=== PATIENT | male | born 1955 | race African-American/Black ===

== ENCOUNTER 2017-06-09 12:19 | Emergency (ER) | payer SELFPAY ==
[2017-06-09] MEDS ORDERED: Ibuprofen 200 MG TAB ONE (15:33)
== END 2017-06-09 15:45 | disposition home or self-care (01) ==
LOC: ERS 12:19
DX: S06.0X0A Concussion without loss of consciousness, initial encounter (principal); S16.1XXA Strain of muscle, fascia and tendon at neck level, initial encounter; S39.012A Strain of muscle, fascia and tendon of lower back, initial encounter; E11.9 Type 2 diabetes mellitus without complications; F17.210 Nicotine dependence, cigarettes, uncomplicated; V43.62XA Car passenger injured in collision with other type car in traffic accident, initial encounter
CPT/HCPCS: 99283

== ENCOUNTER 2017-07-14 18:26 | Inpatient (IN) | payer OTHER ==
[2017-07-14 19:38] LABS: Hemoglobin 14.4 g/dL (14.0-18.0); Mean Corpuscular HGB CONC 33.2 g/dL (32.0-36.0); Mean Corpuscular Hemoglobin 34.2 pg (27.0-31.0); Mean Platelet Volume 10.1 fL (7.4-10.4); Platelet Count 47 thou/uL (130-400); RBC Distribution Width 11.7 % (11.5-14.5); Red Blood Cell (RBC) Count 4.21 mill/uL (4.70-6.10); White Blood Cell (WBC) Count 7.9 thou/uL (4.8-10.8)
[2017-07-14 19:46] LABS: ALT (SGPT) 47 U/L (8-55); AST (SGOT) 56 U/L (5-34); Albumin 2.6 g/dL (3.5-5.0); Alkaline Phosphatase 118 U/L (40-150); Anion Gap 12 mmol/L (10-20); BUN (Urea Nitrogen) 13 mg/dL (8.4-25.7); Bilirubin, Total 0.6 mg/dL (0.2-1.2); Calc. Creatinine Clearance 0 mL/min (70-130); Calcium 7.9 mg/dL (7.8-10.44); Carbon Dioxide 22 mmol/L (22-29); Chloride 98 mmol/L (98-107); Estimated GFR-MDRD 84; Globulin 4.1 g/dL (2.4-3.5); Glucose 145 mg/dL (70-105); Potassium 3.7 mmol/L (3.5-5.1); Protein, Total 6.7 g/dL (6.0-8.3); Sodium 128 mmol/L (136-145)
[2017-07-14 19:50] LABS: #Basophils 0.1 thou/uL (0.0-0.2); #Lymphocytes 1.8 thou/uL (1.20-3.40); #Monocytes 0.4 thou/uL (0.11-0.59); #Neutrophils 5.5 thou/uL (1.40-6.50); %Basophils 0.8 % (0.0-1.0); %Eosinophils 0.2 % (0.0-10.0); %Lymphocytes 23.3 % (21.0-51.0); %Monocytes 5.5 % (0.0-10.0); %Neutrophils 70.2 % (42.0-75.0); Band 29 % (5-11); Lymphocytes 16 % (21-51); MDiff Complete? YES; Macrocytosis SLIGHT = 6-15 cells (100X) (0-5/hpf); Metamyelocyte 1 % (0-0); Monocytes 2 % (0-10); Neutrophil 45 % (42-75); PLT Morphology Comment Appears Decreased; Reactive Lymphocytes 7 % (0-10); Vacuoles SLIGHT
--- NOTE | 2017-07-14 20:09 | RAD ---
CHEST ONE VIEW 07/14/17 HISTORY: Fever. COMPARISON: None. FINDINGS: There is air space opacity in lingula and left lower lobe. No pneumothorax. Right lung is relatively clear. The cardiac silhouette and mediastinal contours are within normal limits. IMPRESSION: Lingular and left lower lobe air space opacity suggesting pneumonia. Followup recommended. POS: [facility]
[2017-07-14 21:07] LABS: Bilirubin Negative (Negative); Blood, Urine Negative (Negative); Clarity CLEAR (Clear); Glucose, Urine (Dipstick) Negative (Negative); Leukocyte Negative (Negative); Nitrite Negative (Negative); Protein, Urine (Dipstick) Negative (Neg-Trace); Specific Gravity, Urine 1.011 (1.002-1.036)
[2017-07-14] MEDS ORDERED: Azithromycin 250 MG TAB ONE (21:16)
[2017-07-14] MEDS ORDERED: Ondansetron ODT 4 MG TAB SL PRN (23:49)
[2017-07-14] MEDS ORDERED: Acetaminophen 325 MG TAB PO PRN (23:49)
[2017-07-14] MEDS ORDERED: Ondansetron HCl/PF 4 MG/2 ML Vial IVP PRN (23:49)
[2017-07-15 00:21] VITALS: BMI 20.1
[2017-07-15] MEDS ORDERED: Ondansetron ODT 4 MG TAB PO PRN (00:42)
[2017-07-15] MEDS ORDERED: Sodium Chloride 0.9% 1,000 ML IV SCH (00:45)
[2017-07-15] MEDS ORDERED: cefTRIAXone\\ROCEPHIN 1 GM in Sodium Chloride 0.9% 100 ML IVPB SCH (01:00)
[2017-07-15 04:46] LABS: #Lymphocytes 2.7 thou/uL (1.20-3.40); #Monocytes 0.7 thou/uL (0.11-0.59); #Neutrophils 8.7 thou/uL (1.40-6.50); %Basophils 0.1 % (0.0-1.0); %Eosinophils 0.1 % (0.0-10.0); %Lymphocytes 22.6 % (21.0-51.0); %Monocytes 5.4 % (0.0-10.0); %Neutrophils 71.7 % (42.0-75.0); Hemoglobin 13.8 g/dL (14.0-18.0); Mean Corpuscular HGB CONC 34.9 g/dL (32.0-36.0); Mean Platelet Volume 10.6 fL (7.4-10.4); Platelet Count 43 thou/uL (130-400); RBC Distribution Width 11.7 % (11.5-14.5); Red Blood Cell (RBC) Count 3.84 mill/uL (4.70-6.10); White Blood Cell (WBC) Count 12.1 thou/uL (4.8-10.8)
[2017-07-15 04:47] LABS: ALT (SGPT) 34 U/L (8-55); AST (SGOT) 42 U/L (5-34); Albumin 2.5 g/dL (3.5-5.0); Alkaline Phosphatase 99 U/L (40-150); Anion Gap 7 mmol/L (10-20); BUN (Urea Nitrogen) 10 mg/dL (8.4-25.7); Bilirubin, Total 0.8 mg/dL (0.2-1.2); Calc. Creatinine Clearance 63 mL/min (70-130); Calcium 7.8 mg/dL (7.8-10.44); Carbon Dioxide 26 mmol/L (22-29); Chloride 107 mmol/L (98-107); Estimated GFR-MDRD 89; Globulin 3.2 g/dL (2.4-3.5); Glucose 101 mg/dL (70-105); Potassium 3.7 mmol/L (3.5-5.1); Protein, Total 5.7 g/dL (6.0-8.3); Sodium 136 mmol/L (136-145)
--- NOTE | 2017-07-15 06:54 | HP ---
CHIEF COMPLAINT: Flu-like symptoms. HISTORY OF PRESENT ILLNESS: He is a 61-year-old male with history of diabetes, cirrhosis. He presented to ED because he had flu-like symptoms for the last 1 week including cough, blood-tinged sputum, chills, fevers, rhinorrhea, and diarrhea for the last 3 days. He also has sick contact and the family has flu positive at home. He denies any hematemesis or melena. When he came to ER, his vital signs were pulse 112, blood pressure 95/65, respiratory rate 22, temperature 103.1. In the ER, he was diagnosed of sepsis and pneumonia and was given Rocephin, Zithromax, and vancomycin. PAST MEDICAL HISTORY: History of type 2 diabetes, cirrhosis. PAST SURGICAL HISTORY: History of cholecystectomy. PSYCHIATRIC HISTORY: Bipolar disorder. SOCIAL HISTORY: He denies alcohol use or drug use, but currently uses tobacco, 4 cigarettes a day. ALLERGIES: History of no drug allergy. MEDICATION TAKEN AT HOME: Metformin. FAMILY HISTORY: Noncontributory. REVIEW OF SYSTEMS: Constitutional: He does have chills, fatigue, and fever. Eyes: He denies any blurred vision. ENT: He complained of rhinorrhea. Cardiovascular: Denies any chest pain, palpitation. Respiratory: He complained of productive cough and wheezing. Gastrointestinal: He does have some diarrhea. Denies any hematemesis, melena. Musculoskeletal: No muscular pain. Skin: Negative. Neurologic: Negative. No headache. No dizziness. All review of systems was negative except in the history and physical. PHYSICAL EXAMINATION: GENERAL: When examined, this is a middle-aged man in the bed, not in distress. He was tachycardic, febrile. VITAL SIGNS: Blood pressure 130/69, pulse 86, respiratory rate 20, 100% saturation on room air. HEENT: Head is atraumatic, normocephalic. Pupils are round and reactive. Extraocular muscles intact. Ear and throat are normal. Tongue mucosa moist. NECK: Supple. No JVD. No thyromegaly. No carotid bruit. Trachea midline. No lymphadenopathy. CHEST: Diminished breath sounds. Few rhonchi. No wheezing. No crackles. CARDIOVASCULAR: S1, S2 audible. Tachycardia. No S3, S4. ABDOMEN: Soft. Bowel sounds audible. No organomegaly. No guarding. No rigidity. BACK: Normal range of motion. EXTREMITIES: No pedal edema. No cyanosis. No clubbing. NEUROLOGIC: Alert and oriented x3. No focal deficit. SKIN: Normal turgor. No rash. PSYCHIATRIC: Alert and oriented x3. Normal affect. IMAGING: EKG, tachycardia, normal left axis, possible left enlargement, no ST changes. Chest showed lingular left lower airspace disease, pneumonia. LABORATORY DATA: His lab shows WBC 7.9, hemoglobin 14.4, hematocrit 43.3, platelets 47, band 29. Sodium 128, potassium 3.7, chloride 98, carbon dioxide 22, anion gap 12, BUN 13, creatinine 1.08, glucose 145, Lactic acid 2.3 AST 56, ALT 43, albumin 2.6, globulin 4.1. ASSESSMENT AND PLAN: 1. Sepsis secondary to pneumonia. Plan: Sepsis protocol. IV fluid cautiously. IV Rocephin, Zithromax. 2. Hyponatremia secondary to the cirrhosis of liver. We will continue to monitor it. 3. Thrombocytopenia secondary to cirrhosis of liver. We will continue to monitor. 4. Hypoalbuminemia and abnormal liver function test with history of cirrhosis of liver. 5. Deep venous thrombosis prophylaxis, sequential compression devices. MTDD
[2017-07-15] MEDS: Famotidine 20 MG TAB PO SCH ×2 (07:49→20:15)
[2017-07-15] MEDS: Nicotine 14 MG PATCH TD SCH (07:50)
[2017-07-15] MEDS: Sodium Chloride 0.9% 1,000 ML IV SCH (07:50)
[2017-07-15 08:30] LABS: HBCM Index 0.08 S/CO (0-0.79); HBSAg Index 0.19 S/CO (0-0.99); Hep A IgM AB Non-Reactive (NonReactive); Hep A IgM S/CO 0.12 S/CO (0-0.79); Hep B Surf Ag Non-Reactive S/CO (NonReactive); Hep C IgG Ab Non-Reactive (NonReactive); Hep C Index 0.34 S/CO (0-0.79); Hepatitis B Core IGM Abs Non-Reactive (NonReactive)
--- NOTE | 2017-07-15 10:30 | PDOC.PN ---
- Subjective Encounter Start Date: 07/15/17 Encounter Start Time: 08:50 Subjective: breathing better -: drinks about 6pack 3 times/week, smokes 10-12 cig/day -: has hep B?, not sure, not on any treatment - Objective Resuscitation Status: Resuscitation Status FULL:Full Resuscitation MAR Reviewed: Yes Vital Signs & Weight: Vital Signs (12 hours) Temp Pulse Resp BP Pulse Ox 07/15/17 08:00 98.6 F 75 16 122/77 100 07/15/17 04:48 98.4 F 73 18 115/75 07/15/17 00:19 97.7 F 97 18 125/79 97 07/15/17 00:00 97.7 F 97 18 97 Weight Weight 128 lb 6.4 oz I&O: 07/14/17 07/15/17 07/16/17 06:59 06:59 06:59 Intake Total 240 Balance 240 Result Diagrams: 07/15/17 04:12 07/15/17 04:12 Additional Labs: Accuchecks 07/15/17 04:53 POC Glucose 94 Phys Exam - Physical Examination HEENT: PERRLA, moist MMs Neck: no JVD, supple Respiratory: no wheezing, no rales Cardiovascular: RRR, no significant murmur Gastrointestinal: soft, non-tender, positive bowel sounds Musculoskeletal: no edema, pulses present Neurological: non-focal, moves all 4 limbs Psychiatric: A&O x 3 Dx/Plan (1) Sepsis Code(s): A41.9 - SEPSIS, UNSPECIFIED ORGANISM Status: Acute Qualifiers: Sepsis type: sepsis due to unspecified organism Qualified Code(s): A41.9 - Sepsis, unspecified organism (2) PNA (pneumonia) Code(s): J18.9 - PNEUMONIA, UNSPECIFIED ORGANISM Status: Acute Qualifiers: Pneumonia type: due to unspecified organism (3) DM type 2 (diabetes mellitus, type 2) Status: Chronic Qualifiers: Diabetes mellitus complication status: with unspecified complications Diabetes mellitus long term care social worker insulin use: without alf use Qualified Code( s): E11.8 - Type 2 diabetes mellitus with unspecified complications (4) Cirrhosis Code(s): K74.60 - UNSPECIFIED CIRRHOSIS OF LIVER Status: Chronic Qualifiers: Hepatic cirrhosis type: alcoholic cirrhosis Ascites presence: without ascites Qualified Code(s): K70.30 - Alcoholic cirrhosis of liver without ascites - Plan is on ceftriaxone and azithromycin -: nebs, viral pcr panel -: check hep panel, afp levels -: alb is 2.5, platelets 43 all sec to liver disease -: counselled reg alc and tob abuse * . Review of Systems - Medications/Allergies Allergies/Adverse Reactions: Allergies Allergy/AdvReac Type Severity Reaction Status Date / Time No Known Allergies Allergy Verified 07/14/17 23:56 Medications: Current Medications Hydrocodone Bitart/Acetaminophen ([place] 5/325) 1 tab PO Q4H PRN PRN Reason: Moderate Pain (4-6) Albuterol/Ipratropium (Duoneb) 3 ml NEB [id number] STEPHANIE Famotidine (Pepcid) 20 mg PO BID STEPHANIE Last Admin: 07/15/17 07:49 Dose: 20 mg Azithromycin 500 mg/ Sodium (Chloride) 250 mls @ 250 mls/hr IVPB 2200 STEPHANIE Ceftriaxone Sodium 1 gm/ (Syringe 0.4 ml/ Sterile Water) 10 mls @ 120 mls/hr SLOW IVP 2100 STEPHANIE Sodium Chloride (Normal Saline 0.9%) 1,000 mls @ 50 mls/hr IV .Q20H [facility] Last Admin: 07/15/17 07:50 Dose: 1,000 mls Influenza Virus Vaccine (Fluzone Quad [id number] Syringe) 0.5 ml IM .ONCE ONE Stop: 07/16/17 09:01 Nicotine (Nicoderm Patch) 14 mg TD Q24HR [facility] Last Admin: 07/15/17 07:50 Dose: 14 mg Ondansetron HCl (Zofran Odt) 4 mg PO Q6H PRN PRN Reason: Nausea/Vomiting Pneumococcal Polyvalent Vaccine (Pneumovax 23) 0.5 ml IM .ONCE ONE Stop: 07/16/17 09:01 Sodium Chloride (Flush - Normal Saline) 10 ml IVF Q12HR STEPHANIE Last Admin: 07/15/17 07:50 Dose: Not Given Sodium Chloride (Flush - Normal Saline) 10 ml IVF PRN PRN PRN Reason: Saline Flush
[2017-07-15] MEDS: cefTRIAXone\\ROCEPHIN 1 GM, Syringe 0.4 ML in Sterile Water 9.6 ML SLOW IVP SCH (20:14)
[2017-07-15] MEDS: HYDROcodone/Acetaminophen 5/325 mg Tablet PO PRN (20:15)
[2017-07-15] MEDS: Azithromycin 500 MG in Sodium Chloride 0.9% 250 ML 250 ML IVPB SCH (21:54)
[2017-07-15] MEDS ORDERED: traMADol HCl 50 MG TAB PO PRN (23:21)
[2017-07-16] MEDS: Sodium Chloride 0.9% 1,000 ML IV SCH (05:39)
[2017-07-16] MEDS ORDERED: FLU VACC QS2017-18 36 mo. & older 0.5 ML SYRINGE IM ONE (09:00)
[2017-07-16] MEDS: Famotidine 20 MG TAB PO SCH ×2 (09:32→20:29)
[2017-07-16] MEDS: Nicotine 14 MG PATCH TD SCH (09:32)
--- NOTE | 2017-07-16 11:37 | PDOC.PN ---
- Subjective Encounter Start Date: 07/16/17 Encounter Start Time: 10:40 Subjective: cough and sob is better -: no abd pain - Objective Resuscitation Status: Resuscitation Status FULL:Full Resuscitation MAR Reviewed: Yes Vital Signs & Weight: Vital Signs (12 hours) Temp Pulse Resp BP Pulse Ox 07/16/17 11:32 86 14 97 07/16/17 11:00 98.7 F 86 16 147/81 H 99 07/16/17 08:00 98.1 F 89 20 160/92 H 97 07/16/17 07:19 98.1 F 88 20 160/92 H 97 07/16/17 06:37 90 12 97 07/16/17 00:14 93 12 97 Weight Weight 128 lb 6.4 oz I&O: 07/15/17 07/16/17 07/17/17 06:59 06:59 06:59 Intake Total 920 Balance 920 Result Diagrams: 07/15/17 04:12 07/15/17 04:12 Additional Labs: Accuchecks 07/16/17 07/15/17 07/15/17 04:57 19:42 17:04 POC Glucose 85 135 H 157 H 07/15/17 11:35 POC Glucose 104 Phys Exam - Physical Examination HEENT: PERRLA, moist MMs Neck: no nodes, no JVD Respiratory: no wheezing, no rales rhonchi+ Cardiovascular: RRR, no significant murmur Gastrointestinal: soft, non-tender, no distention, positive bowel sounds Musculoskeletal: no edema, pulses present Neurological: non-focal, moves all 4 limbs Psychiatric: A&O x 3 Dx/Plan (1) Sepsis Code(s): A41.9 - SEPSIS, UNSPECIFIED ORGANISM Status: Resolved Qualifiers: Sepsis type: sepsis due to unspecified organism Qualified Code(s): A41.9 - Sepsis, unspecified organism (2) PNA (pneumonia) Code(s): J18.9 - PNEUMONIA, UNSPECIFIED ORGANISM Status: Acute Qualifiers: Pneumonia type: due to unspecified organism (3) DM type 2 (diabetes mellitus, type 2) Status: Chronic Qualifiers: Diabetes mellitus complication status: with unspecified complications Diabetes mellitus lobsterman insulin use: without shelter use Qualified Code( s): E11.8 - Type 2 diabetes mellitus with unspecified complications (4) Cirrhosis Code(s): K74.60 - UNSPECIFIED CIRRHOSIS OF LIVER Status: Chronic Qualifiers: Hepatic cirrhosis type: alcoholic cirrhosis Ascites presence: without ascites Qualified Code(s): K70.30 - Alcoholic cirrhosis of liver without ascites - Plan hepatitis panel is -ve, afp is elevated -: will get MRI liver protocol to check for mass -: is on ceftriaxone and zithromax, nebs -: dc plan in am if stable -: to ambulate in hallway as tolerated * . Review of Systems - Medications/Allergies Allergies/Adverse Reactions: Allergies Allergy/AdvReac Type Severity Reaction Status Date / Time No Known Allergies Allergy Verified 07/14/17 23:56 Medications: Current Medications Hydrocodone Bitart/Acetaminophen ([place] 5/325) 1 tab PO Q4H PRN PRN Reason: Moderate Pain (4-6) Last Admin: 07/15/17 20:15 Dose: 1 tab Albuterol/Ipratropium (Duoneb) 3 ml NEB [id number] [facility] Last Admin: 07/16/17 11:32 Dose: 3 ml Famotidine (Pepcid) 20 mg PO BID [facility] Last Admin: 07/16/17 09:32 Dose: 20 mg Azithromycin 500 mg/ Sodium (Chloride) 250 mls @ 250 mls/hr IVPB 2200 [facility] Last Admin: 07/15/17 21:54 Dose: 250 mls Ceftriaxone Sodium 1 gm/ (Syringe 0.4 ml/ Sterile Water) 10 mls @ 120 mls/hr SLOW IVP 2100 [facility] Last Admin: 07/15/17 20:14 Dose: 10 mls Sodium Chloride (Normal Saline 0.9%) 1,000 mls @ 50 mls/hr IV .Q20H [facility] Last Admin: 07/16/17 05:39 Dose: Not Given Nicotine (Nicoderm Patch) 14 mg TD Q24HR [facility] Last Admin: 07/16/17 09:32 Dose: 14 mg Ondansetron HCl (Zofran Odt) 4 mg PO Q6H PRN PRN Reason: Nausea/Vomiting Sodium Chloride (Flush - Normal Saline) 10 ml IVF Q12HR [facility] Last Admin: 07/16/17 10:16 Dose: Not Given Sodium Chloride (Flush - Normal Saline) 10 ml IVF PRN PRN PRN Reason: Saline Flush Tramadol HCl (Ultram) 50 mg PO Q6H PRN PRN Reason: Pain Last Admin: 07/16/17 05:37 Dose: 50 mg
--- NOTE | 2017-07-16 14:37 | MRI ---
MRI OF THE ABDOMEN WITHOUT AND WITH CONTRAST: Date: 07/16/17 COMPARISON: None. HISTORY: Elevated alphafetoprotein. Alcoholic cirrhosis. TECHNIQUE: Multiplanar, multisequence MR images were obtained of the abdomen without and with contrast. FINDINGS: The liver appears to have a smooth contour without obvious cirrhosis. The gallbladder has been remove d. No biliary dilatation is seen. No suspicious liver mass or abnormal enhancement in the liver is pr esent. There are tiny nonenhancing lesions in the left kidney demonstrating a high T2 signal and measuring u p to 6.0 mm in size which represent cysts. The right kidney, adrenal glands, spleen, and pancreas are unremarkable. No abdominal adenopathy is seen. No marrow signal abnormality is present. IMPRESSION: 1. No suspicious liver abnormality. 2. Left renal cysts. POS: [facility]
[2017-07-16] MEDS: HYDROcodone/Acetaminophen 5/325 mg Tablet PO PRN (15:41)
[2017-07-16] MEDS ORDERED: Gadobenate Dimeglumine 529 MG/1 ML (20ML VIAL) ONE (15:52)
[2017-07-16] MEDS ORDERED: Acetaminophen 325 MG TAB PO PRN (17:28)
[2017-07-16] MEDS: Acetaminophen 325 MG TAB PO PRN (18:03)
[2017-07-16] MEDS: cefTRIAXone\\ROCEPHIN 1 GM, Syringe 0.4 ML in Sterile Water 9.6 ML SLOW IVP SCH (20:29)
[2017-07-16] MEDS: Azithromycin 500 MG in Sodium Chloride 0.9% 250 ML 250 ML IVPB SCH (20:29)
[2017-07-17 05:11] LABS: #Basophils 0.1 thou/uL (0.0-0.2); #Eosinphils 0.2 thou/uL (0.0-0.7); #Lymphocytes 2.8 thou/uL (1.20-3.40); #Monocytes 0.7 thou/uL (0.11-0.59); #Neutrophils 6.2 thou/uL (1.40-6.50); %Basophils 0.8 % (0.0-1.0); %Eosinophils 1.9 % (0.0-10.0); %Monocytes 6.7 % (0.0-10.0); %Neutrophils 62.7 % (42.0-75.0); Hemoglobin 14.1 g/dL (14.0-18.0); Mean Corpuscular HGB CONC 34.4 g/dL (32.0-36.0); Mean Corpuscular Hemoglobin 35.6 pg (27.0-31.0); Mean Platelet Volume 10.6 fL (7.4-10.4); Platelet Count 47 thou/uL (130-400); RBC Distribution Width 11.6 % (11.5-14.5); Red Blood Cell (RBC) Count 3.97 mill/uL (4.70-6.10)
[2017-07-17 05:27] LABS: Anion Gap 12 mmol/L (10-20); BUN (Urea Nitrogen) 6 mg/dL (8.4-25.7); Calc. Creatinine Clearance 77 mL/min (70-130); Calcium 8.5 mg/dL (7.8-10.44); Carbon Dioxide 29 mmol/L (22-29); Chloride 101 mmol/L (98-107); Estimated GFR-MDRD Greater than 90; Glucose 101 mg/dL (70-105); Potassium 3.7 mmol/L (3.5-5.1); Sodium 138 mmol/L (136-145)
[2017-07-17] MEDS: Famotidine 20 MG TAB PO SCH ×2 (07:55→19:38)
[2017-07-17] MEDS: Acetaminophen 325 MG TAB PO PRN ×2 (07:55→17:25)
[2017-07-17] MEDS: HYDROcodone/Acetaminophen 5/325 mg Tablet PO PRN ×2 (07:57→17:24)
[2017-07-17] MEDS: Nicotine 14 MG PATCH TD SCH (08:01)
--- NOTE | 2017-07-17 08:34 | RAD ---
CHEST ONE VIEW: History: Dyspnea. Follow up. Comparison: 07-14-17 FINDINGS: Cardiac silhouette is magnified by projection. Lungs remain hyperinflated. Patchy infiltrates through out each lung, primarily involving the lower lobes, have progressed since the previous exam. There is no evidence of pneumothorax. IMPRESSION: Interval worsening of bilateral infiltrates. Clinical correlation regarding other signs and symptoms of bilateral pneumonitis is required. Close continued radiographic follow up is suggested. POS: [facility]
--- NOTE | 2017-07-17 12:50 | PDOC.PN ---
- Subjective Encounter Start Date: 07/17/17 Encounter Start Time: 10:25 Subjective: is breathing better -: no sob, is amb in room - Objective Resuscitation Status: Resuscitation Status FULL:Full Resuscitation MAR Reviewed: Yes Vital Signs & Weight: Vital Signs (12 hours) Temp Pulse Resp BP Pulse Ox 07/17/17 11:47 85 16 94 L 07/17/17 08:00 98.8 F 81 18 152/66 H 100 Weight Admit Weight 128 lb 6.4 oz Weight 128 lb 6.4 oz I&O: 07/16/17 07/17/17 07/18/17 06:59 06:59 06:59 Intake Total 920 540 Output Total 1800 Balance 920 -1260 Result Diagrams: 07/17/17 04:14 07/17/17 04:14 Additional Labs: Accuchecks 07/17/17 07/17/17 07/16/17 11:59 04:06 19:56 POC Glucose 111 H 96 159 H 07/16/17 07/16/17 19:00 15:51 POC Glucose 141 H 135 H Phys Exam - Physical Examination HEENT: PERRLA, moist MMs Neck: no JVD, supple Respiratory: no wheezing, no rales rhonchi+ Cardiovascular: RRR, no significant murmur Gastrointestinal: soft, non-tender, positive bowel sounds Musculoskeletal: no edema, pulses present Neurological: non-focal, moves all 4 limbs Psychiatric: normal affect, A&O x 3 Dx/Plan (1) Sepsis Code(s): A41.9 - SEPSIS, UNSPECIFIED ORGANISM Status: Resolved Qualifiers: Sepsis type: sepsis due to unspecified organism Qualified Code(s): A41.9 - Sepsis, unspecified organism (2) PNA (pneumonia) Code(s): J18.9 - PNEUMONIA, UNSPECIFIED ORGANISM Status: Acute Qualifiers: Pneumonia type: due to unspecified organism (3) DM type 2 (diabetes mellitus, type 2) Status: Chronic Qualifiers: Diabetes mellitus complication status: with unspecified complications Diabetes mellitus group home insulin use: without group home use Qualified Code( s): E11.8 - Type 2 diabetes mellitus with unspecified complications (4) Alcohol abuse Code(s): F10.10 - ALCOHOL ABUSE, UNCOMPLICATED Status: Chronic (5) Tobacco abuse Code(s): Z72.0 - TOBACCO USE Status: Chronic - Plan on ceftriaxone and zithromax -: switch to omnicef -: clinically is getting better, xray likely lagging behind -: dc plan in am, thrombocytopenia with high mcv likely due to alc abuse -: will need script for nicotine patch (has helped him) * . Review of Systems - Medications/Allergies Allergies/Adverse Reactions: Allergies Allergy/AdvReac Type Severity Reaction Status Date / Time No Known Allergies Allergy Verified 07/14/17 23:56 Medications: Current Medications Acetaminophen (Tylenol) 650 mg PO Q6H PRN PRN Reason: Headache/Fever or Pain Last Admin: 07/17/17 07:55 Dose: 650 mg Hydrocodone Bitart/Acetaminophen ([place] 5/325) 1 tab PO Q4H PRN PRN Reason: Moderate Pain (4-6) Last Admin: 07/17/17 07:57 Dose: 1 tab Albuterol/Ipratropium (Duoneb) 3 ml NEB [id number] STEPHANIE Last Admin: 07/17/17 11:47 Dose: 3 ml Famotidine (Pepcid) 20 mg PO BID STEPHANIE Last Admin: 07/17/17 07:55 Dose: 20 mg Azithromycin 500 mg/ Sodium (Chloride) 250 mls @ 250 mls/hr IVPB 2200 STEPHANIE Last Admin: 07/16/17 20:29 Dose: 250 mls Ceftriaxone Sodium 1 gm/ (Syringe 0.4 ml/ Sterile Water) 10 mls @ 120 mls/hr SLOW IVP 2100 STEPHANIE Last Admin: 07/16/17 20:29 Dose: 10 mls Nicotine (Nicoderm Patch) 14 mg TD Q24HR STEPHANIE Last Admin: 07/17/17 08:01 Dose: 14 mg Ondansetron HCl (Zofran Odt) 4 mg PO Q6H PRN PRN Reason: Nausea/Vomiting Sodium Chloride (Flush - Normal Saline) 10 ml IVF Q12HR STEPHANIE Last Admin: 07/17/17 08:01 Dose: 10 ml Sodium Chloride (Flush - Normal Saline) 10 ml IVF PRN PRN PRN Reason: Saline Flush Tramadol HCl (Ultram) 50 mg PO Q6H PRN PRN Reason: Pain Last Admin: 07/16/17 05:37 Dose: 50 mg
[2017-07-17] MEDS: Azithromycin 500 MG in Sodium Chloride 0.9% 250 ML 250 ML IVPB SCH (19:37)
[2017-07-17] MEDS: cefTRIAXone\\ROCEPHIN 1 GM, Syringe 0.4 ML in Sterile Water 9.6 ML SLOW IVP SCH (19:38)
[2017-07-17] MEDS ORDERED: Benzonatate 100 MG CAP PO PRN (19:49)
[2017-07-17] MEDS: Guaifenesin DM 100-10/5 ML UDCUP PO PRN (20:32)
[2017-07-18] MEDS: Guaifenesin DM 100-10/5 ML UDCUP PO PRN ×2 (04:51→08:42)
[2017-07-18 08:32] VITALS: BP 142/88; TEMP 99.4
[2017-07-18] MEDS: Famotidine 20 MG TAB PO SCH (08:42)
[2017-07-18] MEDS: Nicotine 14 MG PATCH TD SCH (08:42)
[2017-07-18] MEDS: Acetaminophen 325 MG TAB PO PRN (08:51)
[2017-07-18] MEDS: HYDROcodone/Acetaminophen 5/325 mg Tablet PO PRN (11:36)
--- NOTE | 2017-07-18 17:48 | DIS ---
DATE OF ADMISSION: 07/14/2017 DATE OF DISCHARGE: 07/18/2017 DISCHARGE DIAGNOSES: 1. Sepsis syndrome secondarily to pneumonia, resolved. 2. Bilateral pneumonia with suspected gram positive cocci, stable. 3. Alcohol abuse. 4. Tobacco abuse. 5. Diabetes mellitus type 2. CONSULTATIONS: None. PERTINENT LABORATORY AND X-RAY FINDINGS: Sodium ranged between 128-138. Lactic acid level ranged be tween 1.0-2.3, AST ranged between 42-56, ALT ranged between 34-47, albumin ranged between 2.5-2.6, li pase 37. AFP 19.8. CBC showed a white blood cell count ranging between 7.9-12.0, hemoglobin ranged between 13.8-14.4. Hepatitis A, B, and C panel negative, 07/14/2017. Blood culture x1 dated 018 showed no growth at 48 hours. Influenza A and B antigen dated 07/14/2017 negative. Respiratory virus panel dated 07/15/2017 negative. Portable chest x-ray dated 07/14/2017 showed lingular and lef t lower lobe infiltrate suggestive of pneumonia. Portable chest x-ray dated 07/17/2017 showed bilate ral infiltrates. HOSPITAL COURSE: Patient was admitted to the medical floor after initially presenting with flu-like symptoms with productive cough, fever, and chills. The patient underwent extensive evaluation includ ing multiple metabolic evaluations with influenza ruled out as stated previously. The patient was no ednver with infiltrates on chest imaging and initiated on IV antibiotic therapy after concern for sepsis syndrome secondary to pneumonia. The patient received IV Rocephin and Zithromax as well as intraven ous fluids. The patient clinically improved in the first 48 hours; however, had residual productive cough. The patient was given mucolytics and antitussive agents with mild improvement. Patient also received bronchodilator therapy and general pulmonary support. The patient clinically stabilized by the day of discharge, tolerating regular oral intake, ambulating without assistance or difficulty and clinically stable. The patient will transition to Omnicef 300 mg b.i.d. to complete outpatient anti biotic course. Overall, the patient clinically stabilized and ready for discharge on 07/18/2017. DISCHARGE MEDICATIONS: 1. Omnicef 300 mg 1 tab p.o. b.i.d. x7 days. 2. Tessalon Perles 100 mg p.o. q.4 hours p.r.n. cough. 3. Robitussin-DM 15 mL p.o. q.4 h. p.r.n. 4. Naproxen 500 mg 1 tab p.o. daily. 5. Nicotine patch 14 mg transdermally q.24 h. 6. Onglyza 5 mg p.o. daily. 7. Trazodone 50 mg p.o. daily. FOLLOWUP: Patient will follow up with his primary care provider, Dr. Jeff Rosas, within 7 days of discharge. CONDITION ON DISCHARGE: Fair. ACTIVITY: ad chavez. DIET: ADA. CODE STATUS: FULL. SPECIAL INSTRUCTIONS: Recommend repeat AFP tumor marker within 2 weeks of discharge. DISPOSITION: Home, 07/18/2017.
--- NOTE | 2017-07-19 00:48 | EKG ---
Test Reason : Blood Pressure : / mmHG Vent. Rate : 094 BPM Atrial Rate : 084 BPM P-R Int : 134 ms QRS Dur : 082 ms QT Int : 362 ms P-R-T Axes : 079 083 063 degrees QTc Int : 452 ms Sinus rhythm with Premature supraventricular complexes with occasional Premature ventricular complexe s Otherwise normal ECG When compared with ECG of 14-JUL-2017 19:10, (Unconfirmed) Premature ventricular complexes are now Present Premature supraventricular complexes are now Present Confirmed by YVON MOSQUEDA, DR. Rodney ([id number]) on 07/19/2017 12:47:55 AM Referred By: JOHANNA Confirmed By:DR. Ronel SANZ MD
== END 2017-07-18 12:04 | disposition home or self-care (01) | DRG 871 ==
LOC: ERS 18:26 → T4-B 22:30
PROVIDERS: ADMIT Family Medicine; ATTEND Family Medicine
DX: A41.9 Sepsis, unspecified organism (principal); J18.9 Pneumonia, unspecified organism; D69.6 Thrombocytopenia, unspecified; E87.1 Hypo-osmolality and hyponatremia; E88.09 Other disorders of plasma-protein metabolism, not elsewhere classified; E11.9 Type 2 diabetes mellitus without complications; Z79.84 Long term (current) use of oral hypoglycemic drugs; F31.9 Bipolar disorder, unspecified; F17.210 Nicotine dependence, cigarettes, uncomplicated; F10.10 Alcohol abuse, uncomplicated; K70.30 Alcoholic cirrhosis of liver without ascites
CPT/HCPCS: 36415; 36416; 71045; 74183; 80048; 80053; 80074; 81003; 82105; 83605; 83690; 85025; 87040; 87633; 93005; 93010; 94640; 94760; 96361; 96365; 96375; A4216; A9579; J0456; J0696; J3370; J7050; J7620

== ENCOUNTER 2018-04-19 13:37 | Observation (INO) | payer OTHER ==
[2018-04-19] MEDS ORDERED: Piperacillin/Tazobactam 4.5 GM VIAL ONE (13:58)
[2018-04-19 14:23] LABS: #Basophils 0.1 thou/uL (0.0-0.2); #Eosinphils 0.3 thou/uL (0.0-0.7); #Lymphocytes 2.6 thou/uL (1.20-3.40); #Monocytes 0.4 thou/uL (0.11-0.59); #Neutrophils 2.7 thou/uL (1.40-6.50); %Basophils 1.3 % (0.0-1.0); %Eosinophils 4.4 % (0.0-10.0); %Lymphocytes 43.2 % (21.0-51.0); %Monocytes 6.4 % (0.0-10.0); %Neutrophils 44.8 % (42.0-75.0); Hemoglobin 13.4 g/dL (14.0-18.0); Mean Corpuscular Hemoglobin 34.4 pg (27.0-31.0); Mean Platelet Volume 11.1 fL (7.4-10.4); Platelet Count 65 thou/uL (130-400); RBC Distribution Width 11.6 % (11.5-14.5); Red Blood Cell (RBC) Count 3.89 mill/uL (4.70-6.10); White Blood Cell (WBC) Count 6.1 thou/uL (4.8-10.8)
[2018-04-19 14:31] LABS: PLT Morphology Comment Appears Decreased; RBC Morphology Normal
[2018-04-19 14:35] LABS: ALT (SGPT) 93 U/L (8-55); AST (SGOT) 80 U/L (5-34); Albumin 3.2 g/dL (3.4-4.8); Alkaline Phosphatase 141 U/L (40-150); Anion Gap 10 mmol/L (10-20); BUN (Urea Nitrogen) 10 mg/dL (8.4-25.7); Bilirubin, Total 1.1 mg/dL (0.2-1.2); CK (CPK) 358 U/L (30-200); Calc. Creatinine Clearance 0 mL/min (70-130); Calcium 8.6 mg/dL (7.8-10.44); Carbon Dioxide 27 mmol/L (23-31); Chloride 103 mmol/L (98-107); Estimated GFR-MDRD 58; Globulin 3.6 g/dL (2.4-3.5); Glucose 101 mg/dL (80-115); Protein, Total 6.8 g/dL (5.8-8.1); Sodium 136 mmol/L (136-145)
--- NOTE | 2018-04-19 14:36 | RAD ---
CHEST 1 VIEW: Date: 04/19/18 HISTORY: Patient feeling unsteady. Weakness and lethargy. COMPARISON: None. FINDINGS: Normal cardiac silhouette. Pulmonary vessels and hilum are normal. No mass. No consolidation. No pneu mothorax or osseous abnormalities. IMPRESSION: No acute cardiopulmonary process. POS: [facility]
[2018-04-19 14:40] LABS: CKMB 1.9 ng/mL (0-6.6); Troponin I 0.026 ng/mL (< 0.028)
[2018-04-19 14:52] LABS: Bilirubin Negative (Negative); Blood, Urine Small (Negative); Clarity CLEAR (Clear); Glucose, Urine (Dipstick) Negative (Negative); Leukocyte Negative (Negative); Nitrite Negative (Negative); Protein, Urine (Dipstick) Negative (Neg-Trace); Specific Gravity, Urine 1.009 (1.002-1.036); pH, Urine 6.5 (5.0-9.0)
[2018-04-19 14:54] LABS: Bacteria/HPF None Seen HPF (None Seen); Pathc Cast-AUWi Flag 1.59 (0-2.49); RBC/HPF 0-3 HPF (0-3); Squamous Epithelial 0-3 HPF (0-3); WBC/HPF 0-3 HPF (0-3)
[2018-04-19 18:08] VITALS: BMI 21.7
[2018-04-19] MEDS ORDERED: Heparin 5,000 UNITS/ML VIAL SC SCH (21:00)
[2018-04-19] MEDS ORDERED: Nicotine 14 MG PATCH TOP SCH (21:30)
[2018-04-19 21:31] LABS: Medtox Reader # READER 4
[2018-04-19 21:32] LABS: Amphetamine Not Detected (NotDetected); Barbiturates Screen Not Detected (NotDetected); Benzodiazepine Screen Not Detected (NotDetected); Cocaine Metabolite Screen Not Detected (NotDetected); Medtox Control Line Valid? VALID (VALID); Methadone Not Detected (NotDetected); Methamphetamine Not Detected (NotDetected); Opiate Screen Not Detected (NotDetected); Oxycodone Screen Not Detected (NotDetected); Phencyclidine (PCP) Not Detected (NotDetected); THC/Cannabinoid Screen Detected (NotDetected); Tricyclic Screen Not Detected (NotDetected)
[2018-04-20 05:49] LABS: #Basophils 0.1 thou/uL (0.0-0.2); #Eosinphils 0.4 thou/uL (0.0-0.7); #Lymphocytes 2.8 thou/uL (1.20-3.40); #Monocytes 0.5 thou/uL (0.11-0.59); #Neutrophils 1.9 thou/uL (1.40-6.50); %Basophils 1.6 % (0.0-1.0); %Eosinophils 7.2 % (0.0-10.0); %Lymphocytes 49.3 % (21.0-51.0); %Monocytes 9.5 % (0.0-10.0); %Neutrophils 32.4 % (42.0-75.0); Hemoglobin 13.1 g/dL (14.0-18.0); Mean Corpuscular HGB CONC 32.1 g/dL (32.0-36.0); Mean Corpuscular Hemoglobin 33.8 pg (27.0-31.0); Mean Platelet Volume 11.3 fL (7.4-10.4); Platelet Count 53 thou/uL (130-400); RBC Distribution Width 11.5 % (11.5-14.5); Red Blood Cell (RBC) Count 3.86 mill/uL (4.70-6.10); White Blood Cell (WBC) Count 5.7 thou/uL (4.8-10.8)
[2018-04-20 05:58] LABS: ALT (SGPT) 75 U/L (8-55); AST (SGOT) 70 U/L (5-34); Albumin 2.7 g/dL (3.4-4.8); Alkaline Phosphatase 136 U/L (40-150); Anion Gap 8 mmol/L (10-20); BUN (Urea Nitrogen) 9 mg/dL (8.4-25.7); Bilirubin, Total 0.7 mg/dL (0.2-1.2); Calc. Creatinine Clearance 67 mL/min (70-130); Calcium 7.9 mg/dL (7.8-10.44); Carbon Dioxide 24 mmol/L (23-31); Chloride 107 mmol/L (98-107); Estimated GFR-MDRD 89; Globulin 3.3 g/dL (2.4-3.5); Glucose 122 mg/dL (80-115); Potassium 4.2 mmol/L (3.5-5.1); Sodium 135 mmol/L (136-145)
--- NOTE | 2018-04-20 07:54 | PDOC.EVN ---
Event Note - Event Note Event Note: h&p dictation [id number]
--- NOTE | 2018-04-20 08:41 | HP ---
PRIMARY CARE PHYSICIAN: Jeff Rosas M.D. CHIEF COMPLAINT: Feeling dizzy, lightheaded, and weak. HISTORY OF PRESENT ILLNESS: This is a 62-year-old male with a known history of cirrhosis, who presen ts with a chief complaint of feeling weak, tired, and dizzy since waking up this morning. The patien t has a prior history of type 2 diabetes and cirrhosis. The patient recounts a history of generally feeling poorly for approximately the last week. He has r eported decreased appetite in the last 2 months. About a week ago, he had a significant amount of di arrhea, which has since stopped. Post-diarrhea, the patient had noticed his urine getting progressiv javier darker. At the time of my evaluation, the patient has received IV fluid bolus in the emergency department and currently feels somewhat improved. He has no new complaints and endorses a history as taken above. REVIEW OF SYSTEMS: As per HPI. Constitutional: No overt fevers. The patient endorses some subject lalito chills at home, easy fatigability as noted above. HEENT: No lightheadedness, no dizziness, no l oss of vision, or change in vision. Cardiovascular: Denies any chest pain, chest pressure, left-jcarlos ed arm numbness or tingling. Respiratory: No overt shortness of breath or dyspnea with exertion, ju st a generalized sensation of fatigue. Gastrointestinal: Denies any nausea or diarrhea as discussed above. No abdominal pain or decreased oral intake over the last 2-3 months. Musculoskeletal: No n ew myalgias or arthralgias. Genitourinary: Denies any dysuria, change in urinary frequency, quantit y, color, or odor. Remainder of the review of systems, otherwise, negative. PAST MEDICAL HISTORY: As noted above, significant for type 2 diabetes, cirrhosis, arthritis, and bip olar disorder. PAST SURGICAL HISTORY: Status post cholecystectomy. HOME MEDICATIONS: The patient takes Flomax and states that he does not take any other medications. Denies any [id number] herbal supplements or vitamins. FAMILY HISTORY: The patient denies any other family members with cirrhosis. SOCIAL HISTORY: The patient denies alcohol, tobacco, or illicit drug use. 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 The patient also wishes to b e FULL CODE at this point in time. PHYSICAL EXAMINATION: GENERAL: The patient is awake, alert, conversant, appears a very reasonable historian, in no acute d istress, seated in the hospital bed. HEENT: Normocephalic, atraumatic. Equal ocular motions are intact. Slightly dry mucous membranes. CARDIOVASCULAR: S1 and S2. No murmurs, rubs, or gallops. Pulses 2+ bilateral upper extremities. N o peripheral edema. RESPIRATORY: Reasonable air movement. No wheezes, rales, or rhonchi. Positive bowel sounds. Soft and nontender to palpation. MUSCULOSKELETAL: Moving all 4 extremities independently. LABORATORY DATA AND IMAGING: WBC 6.1, hemoglobin 13.4, hematocrit 40.5, platelet 65. Sodium 136, po tassium 4.0, bicarbonate 27, BUN 10, creatinine 1.5, glucose 101. Lactic acid 1.8, calcium 8.6, tota l bilirubin 1.1, AST 80, ALT 93, alkaline phosphatase 141. Creatine kinase 358 and troponin 0.026. Total protein 6.8, albumin 3.2. UA is essentially bland other than small blood and 10-11 hyaline yesika t. ASSESSMENT AND PLAN: This is a 62-year-old male, who presents with a chief complaint of feeling poor ly. 1. I suspect that the patient has sustained a degree of dehydration and volume depletion after havin g both diarrhea and poor oral intake after work. The patient's history corroborates thousand etiolog y for his hypotension, which has responded very well to fluid resuscitation. We will continue to mon itor the patient's vital signs overnight and recheck a basic metabolic panel, electrolytes, and CBC i n the a.m. We will also recommend checking orthostatic vital signs as well. 2. Elevated creatinine. Likely a prerenal in etiology secondary to diarrhea, volume depletion, dehy dration as discussed above. If this is the case, we would expect an improvement in the serological r enal function markers in the morning. 3. Cirrhosis, grossly stable at this point in time. Recommend a dietary consultation for supplement used that would be hepatic friendly. 4. Question of illicit drug use, marijuana. Continue to monitor the patient. 5. Activity: As tolerated. 6. Deep vein thrombosis prophylaxis with sequentials. DIET: As tolerated. The patient is admitted on observation status. I have discussed the code status with the patient and he wishes to be FULL CODE at this point in time.
[2018-04-20] MEDS ORDERED: Tamsulosin HCl 0.4 MG CAP PO SCH (09:00)
[2018-04-20] MEDS ORDERED: Benzonatate 100 MG CAP PO PRN (09:53)
[2018-04-20] MEDS ORDERED: Diabetic Tussin 200 MG/10 ML UDCUP PO PRN (09:53)
[2018-04-20 16:03] VITALS: BP 158/77; TEMP 99.6
--- NOTE | 2018-04-20 17:16 | PDOC.PN ---
- Subjective Encounter Start Date: 04/20/18 Encounter Start Time: 17:14 Mr. Nair was seen today in follow-up of dehydration and acute renal failure. He says he feels much better. He has been up, and denies feeling weak or dizzy. - Objective Resuscitation Status: Resuscitation Status FULL:Full Resuscitation MAR Reviewed: Yes Vital Signs & Weight: Vital Signs (12 hours) Temp Pulse Resp BP Pulse Ox 04/20/18 15:39 99.6 F 62 15 158/77 H 98 04/20/18 11:00 98.4 F 60 20 153/82 H 100 04/20/18 07:48 98.4 F 55 L 16 152/78 H 99 Weight Admit Weight 138 lb 9.6 oz Weight 138 lb 9.6 oz I&O: 04/19/18 04/20/18 04/21/18 06:59 06:59 06:59 Intake Total 400 Output Total 300 400 Balance 100 -400 Result Diagrams: 04/20/18 05:36 04/20/18 05:36 Additional Labs: Accuchecks 04/20/18 04/20/18 04/19/18 16:42 10:37 21:02 POC Glucose 119 H 145 H 91 04/19/18 18:18 POC Glucose 162 H Phys Exam - Physical Examination HEENT: PERRLA Respiratory: no wheezing, no rales, no rhonchi, clear to auscultation bilateral Cardiovascular: RRR, no significant murmur, no rub Gastrointestinal: soft, non-tender, no distention, positive bowel sounds Musculoskeletal: no edema Dx/Plan (1) Acute kidney injury Code(s): N17.9 - ACUTE KIDNEY FAILURE, UNSPECIFIED Status: Acute (2) Cirrhosis Code(s): K74.60 - UNSPECIFIED CIRRHOSIS OF LIVER Status: Chronic (3) Alcohol abuse Code(s): F10.10 - ALCOHOL ABUSE, UNCOMPLICATED Status: Chronic (4) DM type 2 (diabetes mellitus, type 2) Status: Chronic Qualifiers: - Plan * Acute kidney injury- resolved * Stable for discharge home..
--- NOTE | 2018-04-21 00:49 | DIS ---
PRIMARY CARE PHYSICIAN: Dr. Aman Weaver. DATE OF ADMISSION: 04/19/2018 DATE OF DISCHARGE: 04/20/2018 DISCHARGE DISPOSITION: Home. PRIMARY DISCHARGE DIAGNOSES: 1. Acute kidney injury secondary to dehydration. 2. Cirrhosis secondary to alcohol. 3. Diabetes mellitus. 4. Bipolar disorder. DISCHARGE MEDICATIONS: Include Flomax 0.4 mg daily. CODE STATUS: FULL CODE. ALLERGIES: No known drug allergies. HOSPITAL COURSE: Mr. Nair is a pleasant 62-year-old gentleman who presented to the emergency [facility] with complaints of feeling lightheaded, dizzy, and weak. He noticed that this started when he woke up in the morning prior of the day of admission. He also noted in the past week, he has had decreas ed appetite over 2 months and he also had a significant diarrhea. The patient's diarrhea had actuall y resolved, but he did notice dark urine following this episode. When he was evaluated in the emerge ncy room, he was found to be dehydrated with a creatinine of 1.5, which was at least 50% above his ba seline. He was also noted to have a slightly elevated CK. He was placed in observation, hydrated, a nd later on was feeling improved. The patient now says he has been up walking without any symptoms. He denies feeling dizzy, lightheaded. He is actually sitting up eating when I came to see him and f dallinls ready to go home. There have been no changes in his medications. He states that his diabetes i s diet controlled and his physician at the [facility] had actually taken him off his diabetes medici gabrielle and cholesterol medication. Therefore, the only medication he is on is Flomax. Since he is clin ically stable, his creatinine is back to baseline level of . He will be discharged to home with close outpatient followup in approximately one week.
--- NOTE | 2018-04-21 08:35 | EKG ---
Test Reason : Blood Pressure : / mmHG Vent. Rate : 087 BPM Atrial Rate : 087 BPM P-R Int : 144 ms QRS Dur : 082 ms QT Int : 370 ms P-R-T Axes : 081 082 049 degrees QTc Int : 445 ms Normal sinus rhythm Possible Left atrial enlargement Borderline ECG Confirmed by YOVANI HOLT ([id number]) on 04/21/2018 8:35:00 AM Referred By: Confirmed By:YOVANI HOLT
== END 2018-04-20 18:11 | disposition home or self-care (01) ==
LOC: ERS 13:37 → 2SW 16:47
PROVIDERS: ADMIT Internal Medicine; ATTEND Internal Medicine
DX: N17.9 Acute kidney failure, unspecified (principal); E86.0 Dehydration; K70.30 Alcoholic cirrhosis of liver without ascites; E11.9 Type 2 diabetes mellitus without complications; F31.9 Bipolar disorder, unspecified; Z79.899 Other long term (current) drug therapy
CPT/HCPCS: 36415; 36416; 71045; 80053; 80306; 81003; 81015; 82553; 83605; 84484; 85025; 87040; 87086; 90471; 90686; 90732; 93005; 94760; 96365; G0008; G0009; G0378; J1644; J2543

== ENCOUNTER 2018-10-07 09:50 | Inpatient (IN) | payer OTHER ==
[2018-10-07 10:38] LABS: Hemoglobin 14.3 g/dL (14.0-18.0); Mean Corpuscular HGB CONC 32.7 g/dL (32.0-36.0); Mean Corpuscular Hemoglobin 33.6 pg (27.0-31.0); RBC Distribution Width 11.7 % (11.5-14.5); Red Blood Cell (RBC) Count 4.27 mill/uL (4.70-6.10); White Blood Cell (WBC) Count 5.5 thou/uL (4.8-10.8)
[2018-10-07 10:43] LABS: INR-International Normal Ratio 1.2; Prothrombin Time 15.3 SEC (12.0-14.7)
[2018-10-07 10:44] LABS: PTT 33.7 SEC (22.9-36.1)
[2018-10-07] MEDS ORDERED: Pantoprazole 40 MG VIAL ONE (10:45)
[2018-10-07 10:59] LABS: #Basophils 0.1 thou/uL (0.0-0.2); #Eosinphils 0.3 thou/uL (0.0-0.7); #Lymphocytes 2.4 thou/uL (1.20-3.40); #Monocytes 0.4 thou/uL (0.11-0.59); #Neutrophils 2.3 thou/uL (1.40-6.50); %Basophils 1.2 % (0.0-1.0); %Eosinophils 6.2 % (0.0-10.0); %Lymphocytes 43.1 % (21.0-51.0); %Monocytes 7.8 % (0.0-10.0); %Neutrophils 41.7 % (42.0-75.0); MDiff Complete? YES; Mean Platelet Volume 11.1 fL (7.4-10.4); Platelet Count 61 thou/uL (130-400)
[2018-10-07 11:00] LABS: Large Platelets SLIGHT; Platelet Morphology Comment Appears Decreased
[2018-10-07 11:02] LABS: ALT (SGPT) 105 U/L (8-55); AST (SGOT) 102 U/L (5-34); Albumin 3.4 g/dL (3.4-4.8); Alkaline Phosphatase 181 U/L (40-150); Anion Gap 11 mmol/L (10-20); BUN (Urea Nitrogen) 12 mg/dL (8.4-25.7); Bilirubin, Total 0.7 mg/dL (0.2-1.2); Calc. Creatinine Clearance 0 mL/min (70-130); Calcium 8.6 mg/dL (7.8-10.44); Carbon Dioxide 28 mmol/L (23-31); Chloride 101 mmol/L (98-107); Estimated GFR-MDRD 90; Globulin 3.4 g/dL (2.4-3.5); Glucose 85 mg/dL (80-115); Lipase 58 U/L (8-78); Potassium 4.2 mmol/L (3.5-5.1); Protein, Total 6.8 g/dL (5.8-8.1); Sodium 136 mmol/L (136-145)
[2018-10-07 14:29] VITALS: BMI 20.1
[2018-10-07] MEDS ORDERED: Dextrose 5 % And 0.9 % NaCl 1,000 ML IV SCH (14:45)
[2018-10-07] MEDS ORDERED: Ondansetron ODT 4 MG TAB PO PRN (18:27)
[2018-10-07] MEDS ORDERED: Acetaminophen 500 MG TAB PO PRN (18:27)
[2018-10-07] MEDS ORDERED: Ondansetron PF 4 MG/2 ML Vial IVP PRN (18:27)
[2018-10-07] MEDS ORDERED: hydrALAZINE 20 MG/ML VIAL SLOW IVP PRN (18:27)
--- NOTE | 2018-10-08 01:36 | HP ---
PRIMARY CARE PROVIDER: Dr. Jeff Rosas. CHIEF COMPLAINT: Nausea and vomiting blood. HISTORY OF PRESENT ILLNESS: This is a 62-year-old male, who presented to [facility] Emergency Department complaining of three episodes of emesis with blood streaking on 10/06/2018. The patient states he has been drinking alcohol, leading up until this event with associated nausea and three bouts of emesis. The patient did notice some blood streaking to his emesis as well as some abdominal discomfort. The patient states he might have had one similar incidence in the past, but denies any known history of stomach ulcerations. The patient denies any previous endoscopy. The patient does admit to history of cirrhosis secondarily to alcohol abuse. The patient states the only medications that he routinely takes are blood pressure medicine and Flomax. The patient does admit to continuing to drink alcohol in the midst of cirrhosis and smokes up to half a pack of cigarettes daily. The patient denies taking any anticoagulants or aspirin. The patient denied any change to his stools, diarrhea, or melena. The patient denied any recent travel history or known sick contacts. The patient did not take any specific alleviating medications. In the emergency room, the patient underwent general evaluation including CBC showing a hemoglobin of 14.3. PT 15.3 and INR 1.2. The patient received Protonix 40 mg IV x1 dose and placed on IV fluids. PAST MEDICAL HISTORY: 1. Hepatic cirrhosis, alcohol-induced. 2. Bipolar disorder. 3. Osteoarthritis. 4. Benign prostatic hyperplasia. 5. Hypertension. PAST SURGICAL HISTORY: Status post cholecystectomy. CURRENT MEDICATIONS: 1. Lisinopril, dose unknown. 2. Flomax 0.4 mg p.o. daily. ALLERGIES: NO KNOWN DRUG ALLERGIES. FAMILY HISTORY: No inheritable diseases per patient report. SOCIAL HISTORY: The patient denies any illicit drug use. Continues to drink alcohol regularly. Smokes up to half a pack of cigarettes daily. Occasional marijuana use. REVIEW OF SYSTEMS: CONSTITUTIONAL: Negative for weight loss or gain, ability to conduct usual activities. SKIN: Negative for rash, itching. EYES: Negative for double vision, pain. ENT/MOUTH: Negative for nose bleeding, neck stiffness, pain, tenderness. CARDIOVASCULAR: Negative for palpitations, dyspnea on exertion, orthopnea. RESPIRATORY: Negative for shortness of breath, wheezing, cough, hemoptysis, fever or night sweats. GASTROINTESTINAL: Negative for poor appetite, abdominal pain, heartburn, nausea, vomiting, constipation, or diarrhea. GENITOURINARY: Negative for urgency, frequency, dysuria, nocturia. MUSCULOSKELETAL: Negative for pain, swelling. NEUROLOGIC/PSYCHIATRIC: Negative for anxiety, depression. ALLERGY/IMMUNOLOGIC: Negative for skin rash, bleeding tendency. Otherwise negative except as stated per HPI. PHYSICAL EXAMINATION: VITAL SIGNS: On admission; blood pressure 129/74, pulse 69, respiratory rate 20, temperature 98.4 degrees Fahrenheit, and O2 saturation 100% on room air. GENERAL APPEARANCE: This is a 62-year-old male, alert and oriented x3, pleasant, in no acute distress. HEENT: Pupils are equal, round, and reactive to light and accommodation. Extraocular muscles are intact. No scleral icterus. No conjunctival injection. Nares patent. OP is clear. Teeth in fair repair. NECK: Supple. No cervical adenopathy. No thyromegaly. No carotid bruits. No JVD appreciated. Cervical spine with full active and passive range of motion. No meningeal signs noted. CHEST: Lungs are clear to auscultation bilaterally. CARDIOVASCULAR: S1 and S2 without noted murmur, rub, or gallop. ABDOMEN: Flat, soft with mild tenderness to palpation in the mid epigastric and costal margins bilaterally. No rebound or guarding noted. EXTREMITIES: Warm and dry with fair turgor. No clubbing, cyanosis, or asymmetric edema appreciated. Pulses palpable distally at the dorsalis pedis, posterior tibial, and popliteal arteries bilaterally. Capillary refill is less than 2 seconds. NEUROLOGIC: Cranial nerves 2 through 12 are grossly intact. No focal or lateralizing signs appreciated. PERTINENT LABORATORY DATA AND X-RAY FINDINGS: Sodium 136, potassium 4.2, chloride 101, CO2 of 28, BUN 12, creatinine 1.02, estimated GFR of 90, glucose 85, calcium 8.6, AST 102, ALT 105, alkaline phosphatase 181, and total bilirubin 0.7. Troponin I negative x1. Lipase 58. CBC showed a white blood cell count of 5.5, hemoglobin 14, hematocrit 44, MCV 103, and platelet count 61 with 42% neutrophils. PT 15.3, INR 1.2, and PTT 33.7. Plasma alcohol level less than 10. ASSESSMENT AND PLAN: 1. Hematemesis. Suspect mild Leslie-Zarco tear after repetitive emesis. Continue Protonix 40 mg p.o. b.i.d. Avoid alcohol and gastric irritants. Repeat CBC in the a.m. Likely, the patient may need outpatient GI followup for endoscopy. No acute intervention recommended. 2. Nausea and vomiting. Suspect secondarily to mild gastritis due to alcohol intake. Zofran 4 mg IV q.4 hours p.r.n. 3. Alcohol-induced hepatic cirrhosis. Continue supportive management. Counseled the patient regarding the need for abstinence from alcohol. Repeat LFTs in the a.m. 4. Hypertension. We will resume home antihypertensive regimen once confirmed. Serial blood pressure monitoring. 5. Prophylaxis. SCDs while in bed. Protonix 40 mg p.o. b.i.d. Smoking cessation resources. 6. Code status is full. Surrogate medical decision maker is the patient's spouse. Job ID: [id number]
[2018-10-08] MEDS ORDERED: Tamsulosin HCl 0.4 MG CAP PO SCH (09:00)
[2018-10-08 14:06] LABS: ALT (SGPT) 82 U/L (8-55); AST (SGOT) 69 U/L (5-34); Albumin 3.1 g/dL (3.4-4.8); Alkaline Phosphatase 166 U/L (40-150); Anion Gap 8 mmol/L (10-20); BUN (Urea Nitrogen) 9 mg/dL (8.4-25.7); Bilirubin, Total 0.6 mg/dL (0.2-1.2); Calc. Creatinine Clearance 60 mL/min (70-130); Calcium 8.3 mg/dL (7.8-10.44); Carbon Dioxide 30 mmol/L (23-31); Chloride 103 mmol/L (98-107); Estimated GFR-MDRD 86; Globulin 3.3 g/dL (2.4-3.5); Glucose 140 mg/dL (80-115); Potassium 4.3 mmol/L (3.5-5.1); Protein, Total 6.4 g/dL (5.8-8.1); Sodium 137 mmol/L (136-145)
[2018-10-08 14:07] LABS: Hemoglobin 13.7 g/dL (14.0-18.0); Mean Corpuscular HGB CONC 32.3 g/dL (32.0-36.0); Mean Corpuscular Hemoglobin 33.5 pg (27.0-31.0); Mean Platelet Volume 11.6 fL (7.4-10.4); Platelet Count 51 thou/uL (130-400); RBC Distribution Width 11.7 % (11.5-14.5); Red Blood Cell (RBC) Count 4.08 mill/uL (4.70-6.10)
[2018-10-08 14:09] LABS: Eosinophils 11 % (0-10); Lymphocytes 53 % (21-51); MDiff Complete? YES; Monocytes 10 % (0-10); Neutrophil 20 % (42-75); Platelet Morphology Comment Appears Decreased; RBC Morphology Normal; Reactive Lymphocytes 5 % (0-10)
[2018-10-08 16:15] VITALS: BP 139/74; TEMP 98.2
--- NOTE | 2018-10-09 03:29 | DIS ---
DATE OF ADMISSION: 10/07/2018 DATE OF DISCHARGE: 10/08/2018 DISCHARGE DISPOSITION: Home. DISCHARGE DIAGNOSIS: Hematemesis, resolved, likely secondary to Leslie-Zarco tear from alcohol-induced vomiting. SECONDARY DISCHARGE DIAGNOSES: 1. Alcohol-induced hepatic cirrhosis. 2. Bipolar disorder. 3. Osteoarthritis. 4. Benign prostatic hyperplasia. 5. Hypertension. DISCHARGE MEDICATIONS: Resume home medications, 1. Flomax 0.4 mg daily. 2. Lisinopril, unknown dose. New medications, 1. Protonix 40 mg p.o. daily for one month. 2. Folic acid daily. 3. Thiamine 100 mg daily. PROCEDURES IN THE HOSPITAL: None. CONSULTATIONS: None. HISTORY OF PRESENTING ILLNESS: Mr. Nair is a 62-year-old male who has known history of alcohol abuse and resultant cirrhosis, who presented to the emergency room yesterday for complaints of three episodes of emesis with blood streaking. He continues to drink up to at least 6 pack of beer per day according to his . He was admitted for further evaluation and care. Upon admission, his hemoglobin was at baseline at 14.3. He has chronic thrombocytopenia with platelet count 61 at the time of admission. Please see admission history and physical dictated by Dr. Kruse on 10/07/2018, for further details. HOSPITAL COURSE: The patient's plasma alcohol level was less than 10. His repeat H and H was stable at 13.7. He had no more episodes of hematemesis in the hospital. He was eager to go home and hemodynamically stable, so was discharged. He was treated with Protonix twice a day in the hospital and he will continue that once a day for the next month or so. He will follow up with primary care physician in 2 to 3 weeks or return to the emergency room if the hematemesis reoccurs. He was seen and examined prior to discharge. PHYSICAL EXAMINATION: VITAL SIGNS: This morning, vital signs stable. Heart rate 51, blood pressure 151/79. GENERAL: No acute distress. Awake, alert, and oriented x3. CHEST: Clear to auscultation bilaterally. HEART: Rate and rhythm is regular. ABDOMEN: Benign. No pain or tenderness on palpation. PRIMARY CARE PHYSICIAN: Dr. Jeff Rosas. Job ID: [id number]
== END 2018-10-08 16:26 | disposition home or self-care (01) | DRG 370 ==
LOC: ERS 09:50 → ERHOLD 12:09 → T4-A 14:12
PROVIDERS: ADMIT Family Medicine; ATTEND Family Medicine
DX: K22.6 Gastro-esophageal laceration-hemorrhage syndrome (principal); K70.30 Alcoholic cirrhosis of liver without ascites; F31.9 Bipolar disorder, unspecified; M19.90 Unspecified osteoarthritis, unspecified site; N40.0 Benign prostatic hyperplasia without lower urinary tract symptoms; I10 Essential (primary) hypertension; F10.10 Alcohol abuse, uncomplicated; D69.6 Thrombocytopenia, unspecified; F17.210 Nicotine dependence, cigarettes, uncomplicated; Z90.49 Acquired absence of other specified parts of digestive tract; Y90.0 Blood alcohol level of less than 20 mg/100 ml
CPT/HCPCS: 36415; 80053; 80307; 83690; 84484; 85007; 85025; 85027; 85610; 85730; 86850; 86900; 86901; 93005; C9113

== ENCOUNTER 2019-01-26 12:00 | Emergency (ER) | payer MEDICARE, OTHER ==
[2019-01-26] MEDS ORDERED: Bacitracin 1 PK ONE (13:47)
[2019-01-26] MEDS ORDERED: Lidocaine 1% PF 5 ML VIAL ONE (13:47)
[2019-01-26] MEDS ORDERED: Adacel (T-DAP) 0.5 ML SYRINGE ONE (13:47)
== END 2019-01-26 14:14 | disposition home or self-care (01) ==
LOC: ERS 12:00
DX: L02.212 Cutaneous abscess of back [any part, except buttock and flank] (principal); E11.9 Type 2 diabetes mellitus without complications; M19.90 Unspecified osteoarthritis, unspecified site; K74.60 Unspecified cirrhosis of liver; F32.9 Major depressive disorder, single episode, unspecified
CPT/HCPCS: 10060; 90715; J2001

== ENCOUNTER 2019-01-29 10:58 | Emergency (ER) | payer MEDICARE, OTHER ==
[2019-01-29] MEDS ORDERED: predniSONE 20 MG TAB ONE (12:14)
[2019-01-29 13:36] LABS: Bilirubin Negative (Negative); Blood, Urine Negative (Negative); Clarity Clear (Clear); Glucose, Urine (Dipstick) Normal (Negative); Leukocyte Negative Leu/uL (Negative); Nitrite Negative (Negative); Protein, Urine (Dipstick) Negative (Neg-Trace); Urobilinogen 12 mg/dL (Less than 2)
== END 2019-01-29 14:10 | disposition home or self-care (01) ==
LOC: ERS 10:58
DX: J18.9 Pneumonia, unspecified organism (principal); L02.212 Cutaneous abscess of back [any part, except buttock and flank]; E11.9 Type 2 diabetes mellitus without complications; F17.210 Nicotine dependence, cigarettes, uncomplicated; F32.9 Major depressive disorder, single episode, unspecified
CPT/HCPCS: 36416; 71045; 81003; 93005; 94640; 96360; J7512; J7620

== ENCOUNTER 2020-05-14 10:35 | Emergency (ER) | payer MEDICARE, OTHER | END 2020-05-14 12:52 | disposition home or self-care (01) | LOC: ERS 10:35 | DX: E11.65 Type 2 diabetes mellitus with hyperglycemia (principal); E78.5 Hyperlipidemia, unspecified; I10 Essential (primary) hypertension; M19.90 Unspecified osteoarthritis, unspecified site; F32.9 Major depressive disorder, single episode, unspecified; F17.210 Nicotine dependence, cigarettes, uncomplicated | CPT/HCPCS: 36416; 99284 ==

== ENCOUNTER 2022-06-27 16:54 | Emergency (ER) | payer OTHER | END 2022-06-27 20:36 | disposition home or self-care (01) | LOC: ERS 16:54 | DX: R05.9 Cough, unspecified (principal); E78.5 Hyperlipidemia, unspecified; I10 Essential (primary) hypertension; E11.9 Type 2 diabetes mellitus without complications | CPT/HCPCS: 71045; 87804 ==

== ENCOUNTER 2025-03-05 10:54 | Emergency (ER) | payer MEDICARE, OTHER | END 2025-03-05 12:29 | disposition home or self-care (01) | LOC: ERS 10:54 | DX: R21 Rash and other nonspecific skin eruption (principal); E11.9 Type 2 diabetes mellitus without complications; I10 Essential (primary) hypertension | CPT/HCPCS: 99282 ==